=== PATIENT | female | born 1990 | race Caucasian/White ===

== ENCOUNTER → 2023-04-30 16:28 | Outpatient (CLI) | payer OTHER, SELFPAY ==
--- NOTE | 2023-04-30 16:32 | DI.MRI.S_ITS ---
PROCEDURE: MR BRAIN (IAC) WWO CON INDICATIONS: INTERMITTENT RIGHT EAR DEAFNESS TECHNIQUE: Noncontrast sagittal T1 spin echo, axial FLAIR, axial gradient echo, axial diffusion and ADC through the brain. Axial thin-slice 3D CISS, coronal TruFISP, axial T1 spin echo with fat saturation through the internal auditory canals. After the administration of contrast, thin slice axial and coronal T1 spin echo with fat saturation through the internal auditory canals, and axial and coronal and sagittal T1 spin echo with fat saturation through the brain. COMPARISON: None. FINDINGS: Image quality: Excellent. Cerebellopontine angles: No cerebellopontine angle masses. Inner ear structures appear normally formed. No suspicious enhancement in the internal auditory canal or along the course of the 7th cranial nerve. CSF spaces: Ventricles are normal in size and shape. No extra-axial fluid collections. Basal cisterns are patent. Brain: No intracranial bleeds or mass effects. Bettencourt-white matter interface is intact. No abnormal intracranial enhancement. Diffusion weighted images demonstrate no acute ischemic insults. Brainstem appears normal. Normal intravascular flow voids are present. Skull and face: Calvarial marrow signal is normal. Orbits appear normal. Sinuses: Sinuses and mastoids are clear. IMPRESSION: No significant abnormality is seen. Specifically, no masses or abnormal enhancement are seen within the cerebellopontine angle cisterns or within the internal auditory canals. Dictated by: Devon Delgado M.D. on 04/30/2023 at 16:43 Approved by: eDvon Delgado M.D. on 04/30/2023 at 16:44
== END ==
DX: R44.9 Unspecified symptoms and signs involving general sensations and perceptions (principal); H91.8X1 Other specified hearing loss, right ear; R42 Dizziness and giddiness
CPT/HCPCS: 70553; A9579